=== PATIENT | male | born 1970 | race Hispanic/Latino ===

== ENCOUNTER → 2018-10-25 | Day surgery (SDC) | payer SELFPAY ==
[~2018-10-25] MED LIST: ACETAMINOPHEN 1000 MG/100 ML IV ONE; ANTIBIOTIC PO; BACITRACIN 50,000 UNIT VIAL ONE; BUPIVACAINE HCL 0.5% 10ML MPF VIAL INJ ONE; CEFAZOLIN SOD 1 GM/D5W 50ML 50 ML IV ONE; CEPHALEXIN500 MG PO; DEXAMETHASONE SOD PHOS INJ 4 MG/ML VIAL ONE; FENTANYL CITRATE/PF 100MCG/2 ML INJ ONE; IBUPROFEN200 MG PO; LIDOCAINE HCL 2% LOCAL INJ 5 ML SDV VIAL INJ ONE; MIDAZOLAM HCL 2 MG/2 ML VIAL ONE; MUPIROCIN 2% OINT 22 GM TUBE ONE; ONDANSETRON HCL INJ 2MG/ML 2ML 2 MG/ML VIAL ONE; PROPOFOL IV EMULSION 10 MG/ML 20 ML VIAL ONE; SEVOFLURANE INHAL SOLN 250 ML PEN BTL ONE; TYLENOL WITH C1 EACH PO
[2018-10-25 11:10] VITALS: BP 145/96
--- NOTE | 2018-10-25 12:06 | Operative Report ---
DATE OF PROCEDURE: October 25, 2018 PREOPERATIVE DIAGNOSES 1. Open fracture, left ring finger distal phalanx. 2. Laceration, left long finger extensor tendon. POSTOPERATIVE DIAGNOSES 1. Open fracture, left ring finger distal phalanx. 2. Laceration, left long finger extensor tendon. OPERATIVE PROCEDURES 1. Open reduction and percutaneous pinning of left ring finger distal phalanx fracture. 2. Repair of left long finger extensor tendon. ANESTHESIA: General. INDICATIONS: The patient is a 48-year-old, [id number] male who is employed by a [employer]. 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 During his attempt to get it working, his left long and ring fingers were caught between the belt and a nakul. He was taken straight away to the [facility] off-site emergency center, and consultation with hand surgery was obtained. I went to the urgent care center. After placing digital blocks, I examined the patient and found that the left ring finger had sustained an open fracture of the distal phalanx which was displaced and unstable. He also had obvious laceration and damage to the extensor tendon of the left long finger. The wounds were cleansed as best as possible and then sutured closed. He was dressed and splinted, and staged reconstruction of the injuries is now planned. The risks, benefits and alternatives of treatment were discussed with the patient and the , and they are prepared to undergo the procedures outlined. DETAILS OF PROCEDURE: The patient is marked preoperatively in the holding area. He is brought to the operating theater. After the induction of adequate general anesthesia, he is prepped and draped in a supine position. A time out is performed. The C-arm fluoroscope is brought in, and the verification of the fracture of the left ring finger distal phalanx is obtained. The sutures are then removed, and then all the wounds are copiously irrigated and all of the foreign material is then removed as best as possible. There is staining of the phalanges on the ring and the long fingers from the injury. At this point, inspection of the injuries reveals a laceration obliquely across the eponychial fold from the ulnar side to the radial side of the long finger distal phalanx. This wound is sharply debrided of devitalized tissue, and then it is repaired using 5-0 nylon in an interrupted horizontal mattress fashion. There is a laceration across the distal aspect of the middle phalanx of the left ring finger, and this extends all the way down to the middle phalanx. Upon inspection of this wound, it shows an approximately 75% to 80% transection of the radial aspect of the extensor tendon mechanism. Only the ulnar side is intact. Sharp debridement of devitalized tissues of the skin and subcutaneous tissues is carried out. It is apparent that the finger will need to be maintained in full extension in order to take the tension off of the repair of the extensor tendon mechanism. To make sure that this occurs, an 0.35 K-wire is driven under fluoroscopic control through the distal phalanx, across the DIP joint and into the middle phalanx holding the distal phalanx and middle phalanx in 0 degrees of extension. The pin is then cut off and bent over. At this point, using 4-0 Vicryl in an interrupted figure-of-8 fashion, the extensor tendon mechanism is then repaired with several interrupted sutures. The wound is irrigated with antibiotic-containing solution once again, and then the soft tissues are approximated with 5-0 nylon in an interrupted horizontal mattress fashion. Attention is then turned to the left ring finger. A laceration extends from the ulnar aspect of the D IP joint radially and distally across the eponychial fold to the radial side of the distal phalanx. The wound is distracted. The fracture fragments of the distal phalanx are identified. The extensor tendon mechanism is attached to the proximal fragment of the base of the distal phalanx. The wound is irrigated with antibiotic-containing solution. All of the particulate matter is removed as best possible. At this point, the finger is reduced under fluoroscopic control. An 0.35 K-wire is driven retrograde across the distal phalanx fragments and then into the distal third of the middle phalanx holding the fragments in anatomic alignment in 2 planes and to maintain the DIP joint in full extension. The pin is cut off and then bent outside of the skin as well. The soft tissues are debrided sharply and then repaired using 5-0 nylon in an interrupted horizontal mattress fashion. The fingers have a digital block of 0.5% plain Marcaine placed circumferentially around their bases. Approximately 4 to 5 mL is used for each finger. The tourniquet is deflated. All the fingers pink up nicely. The wounds are noted to be hemostatic. Bactroban ointment is applied to the incisions, Xeroform gauze over the Bactroban, and then sterile dressings are applied. Foam aluminum splints are placed on the fingers to protect the pins and to help maintain the fingers in full extension, and this is held in place with loosely wrapped Coban dressings. The patient tolerates the procedure well and is brought to recovery room in satisfactory condition and discharged with a postoperative instruction sheet as well as a followup appointment. The tourniquet time was 63 minutes. Job#: [id number]
== END | disposition home or self-care (01) ==
LOC: OR 06:00
PROVIDERS: ATTEND Plastic Surgery
DX: S62.635B Displaced fracture of distal phalanx of left ring finger, initial encounter for open fracture (principal); S66.323A Laceration of extensor muscle, fascia and tendon of left middle finger at wrist and hand level, initial encounter; K76.0 Fatty (change of) liver, not elsewhere classified; F41.9 Anxiety disorder, unspecified; F17.210 Nicotine dependence, cigarettes, uncomplicated; W31.89XA Contact with other specified machinery, initial encounter; Y93.89 Activity, other specified; Y92.89 Other specified places as the place of occurrence of the external cause; Y99.0 Civilian activity done for income or pay; Z01.810 Encounter for preprocedural cardiovascular examination
CPT/HCPCS: 26418; 26765; 93005; C1713; J0131; J0690; J1100; J2001; J2250; J2405; J2704

== ENCOUNTER 2018-12-27 08:00 | Outpatient (RCR) | payer OTHER ==
[~2018-12-27 08:00] MED LIST changes: -ACETAMINOPHEN 1000 MG/100 ML IV ONE; -BACITRACIN 50,000 UNIT VIAL ONE; -BUPIVACAINE HCL 0.5% 10ML MPF VIAL INJ ONE; -CEFAZOLIN SOD 1 GM/D5W 50ML 50 ML IV ONE; -DEXAMETHASONE SOD PHOS INJ 4 MG/ML VIAL ONE; -FENTANYL CITRATE/PF 100MCG/2 ML INJ ONE; +IOPAMIDOL 370 MG/ML 200 ML INFUS..BTL INJ ONE; -LIDOCAINE HCL 2% LOCAL INJ 5 ML SDV VIAL INJ ONE; -MIDAZOLAM HCL 2 MG/2 ML VIAL ONE; -MUPIROCIN 2% OINT 22 GM TUBE ONE; -ONDANSETRON HCL INJ 2MG/ML 2ML 2 MG/ML VIAL ONE; -PROPOFOL IV EMULSION 10 MG/ML 20 ML VIAL ONE; -SEVOFLURANE INHAL SOLN 250 ML PEN BTL ONE; +SODIUM CHLORIDE 0.9% 100 ML 100 ML ONE
== END 2018-12-30 ==
LOC: OT 08:00
PROVIDERS: ATTEND Plastic Surgery
DX: S62.632D Displaced fracture of distal phalanx of right middle finger, subsequent encounter for fracture with routine healing (principal); S66.395 Other injury of extensor muscle, fascia and tendon of left ring finger at wrist and hand level; M79.642 Pain in left hand; M25.532 Pain in left wrist; M25.642 Stiffness of left hand, not elsewhere classified; M25.632 Stiffness of left wrist, not elsewhere classified; R53.1 Weakness
CPT/HCPCS: 97010 ×6; 97110 ×7; 97165; Q9967

== ENCOUNTER 2019-01-28 08:59 | Outpatient (RCR) | payer OTHER ==
[~2019-01-28 08:59] MED LIST changes: +ACETAMINOPHEN 1000 MG/100 ML 0 ML IV ONE; +BUPIVACAINE HCL 0.5% INJ 30 ML VIAL INJ ONE; -IOPAMIDOL 370 MG/ML 200 ML INFUS..BTL INJ ONE; +NEOSTIGMINE 1 MG/ML 10ML VIAL ONE; -SODIUM CHLORIDE 0.9% 100 ML 100 ML ONE
== END 2019-01-29 ==
LOC: OT 08:59
PROVIDERS: ATTEND Plastic Surgery
DX: S62.613A Displaced fracture of proximal phalanx of left middle finger, initial encounter for closed fracture (principal); S62.632D Displaced fracture of distal phalanx of right middle finger, subsequent encounter for fracture with routine healing; S66.395 Other injury of extensor muscle, fascia and tendon of left ring finger at wrist and hand level; M79.642 Pain in left hand; M25.532 Pain in left wrist; M25.642 Stiffness of left hand, not elsewhere classified; M25.632 Stiffness of left wrist, not elsewhere classified; R53.1 Weakness
CPT/HCPCS: 97010 ×11; 97110 ×11; 97139; 97530 ×4; J2710

== ENCOUNTER 2019-01-31 08:14 | Outpatient (RCR) | payer OTHER ==
[~2019-01-31 08:14] MED LIST changes: -ACETAMINOPHEN 1000 MG/100 ML 0 ML IV ONE; -BUPIVACAINE HCL 0.5% INJ 30 ML VIAL INJ ONE; -NEOSTIGMINE 1 MG/ML 10ML VIAL ONE
== END 2019-03-01 ==
LOC: OT 08:14
PROVIDERS: ATTEND Plastic Surgery
DX: S62.613D Displaced fracture of proximal phalanx of left middle finger, subsequent encounter for fracture with routine healing (principal); M79.642 Pain in left hand; M25.642 Stiffness of left hand, not elsewhere classified; R53.1 Weakness; M25.532 Pain in left wrist; M25.632 Stiffness of left wrist, not elsewhere classified
CPT/HCPCS: 97139